=== PATIENT | female | born 1990 | race Caucasian/White ===

== ENCOUNTER 2017-12-15 08:35 | Outpatient (CLI) | payer OTHER, MEDICAID | END 2017-12-15 11:00 | disposition home or self-care (01) | LOC: OBT 08:35 → L-D 08:36 → OBT 11:00 | DX: O21.0 Mild hyperemesis gravidarum (principal); O36.8130 Decreased fetal movements, third trimester, not applicable or unspecified; Z3A.34 34 weeks gestation of pregnancy | CPT/HCPCS: 76818 ==

== ENCOUNTER 2017-12-15 11:11 | Emergency (ER) | payer OTHER ==
[2017-12-15] MEDS: METOCLOPRAMIDE 10 MG INJ IV (15:02)
[2017-12-15 15:19] LABS: ADD MAN DIFF? NO
[2017-12-15 15:21] LABS: WHITE BLOOD COUNT 5.3 10^3/ul (4.8-10.8)
[2017-12-15 15:21] LABS: BASOPHILS % 0.2 % (0.0-2.0); HEMATOCRIT 28.4 % (37.0-47.0); HEMOGLOBIN 9.3 g/dl (12.0-16.0); LYMPHOCYTES # 0.8 10^3/ul (0.8-2.9); LYMPHOCYTES % 14.9 % (15.0-51.0); MEAN CORPUSCULAR HEMOGLOBIN 27.8 pg (29.0-33.0); MEAN CORPUSCULAR HGB CONC 32.7 g/dl (32.0-37.0); MEAN CORPUSCULAR VOLUME 84.8 fl (82.0-101.0); MEAN PLATELET VOLUME 10.4 fl (7.4-10.4); MONOCYTE # 0.5 10^3/ul (0.3-0.9); MONOCYTES % 9.1 % (0.0-11.0); NEUTROPHILS % 75.6 % (39.0-77.0); PLATELET COUNT 271 10^3/UL (140-415); RED BLOOD COUNT 3.35 10^6/ul (4.20-5.40); RED CELL DISTRIBUTION WIDTH 15.4 % (11.5-14.5)
[2017-12-15 15:30] LABS: ADD UMIC YES; UR ASCORBIC ACID NEGATIVE (NEGATIVE); UR BACTERIA FEW /HPF (NONE SEEN); UR BILIRUBIN (Dip) NEGATIVE (NEGATIVE); UR BLOOD (Dip) NEGATIVE (NEGATIVE); UR CLARITY SLIGHTLY CLOUDY (CLEAR); UR COLOR YELLOW (YELLOW); UR GLUCOSE (Dip) NEGATIVE (NEGATIVE); UR KETONES (Dip) 2+ mg/dL (NEGATIVE); UR LEUKOCYTE ESTERASE (Dip) NEGATIVE Leu/ul (NEGATIVE); UR MUCUS MODERATE /HPF (NONE SEEN); UR NITRITE (Dip) NEGATIVE (NEGATIVE); UR RBC 2 /HPF (0-5); UR SPECIFIC GRAVITY (Dip) 1.025 (1.003-1.030); UR SQUAMOUS EPITHELIAL CELL FEW /HPF (FEW); UR TOTAL PROTEIN (Dip) 2+ mg/dl (NEGATIVE); UR UROBILINOGEN (Dip) 1+ mg/dL (NEGATIVE); UR WBC 2 /HPF (0-5)
[2017-12-15 15:49] LABS: ALANINE AMINOTRANSFERASE 27 IU/L (13-69); ALBUMIN 3.6 g/dl (3.3-4.9); ALBUMIN/GLOBULIN RATIO 0.94; ALKALINE PHOSPHATASE 543 IU/L (42-121); ANION GAP 16 (8-16); ASPARTATE AMINO TRANSFERASE 26 IU/L (15-46); BILIRUBIN,INDIRECT 0.1 mg/dl (0-1.1); BILIRUBIN,TOTAL 0.1 mg/dl (0.2-1.3); BLOOD UREA NITROGEN 4 mg/dl (7-20); CALCIUM 9.1 mg/dl (8.4-10.2); CARBON DIOXIDE 22 mmol/L (21-31); CHLORIDE 102 mmol/L (97-110); CREATININE 0.53 mg/dl (0.44-1.00); GLUCOSE 129 mg/dl (70-220); LIPASE 30 U/L (23-300); POTASSIUM 3.3 mmol/L (3.5-5.1); SODIUM 137 mmol/L (135-144); TOTAL PROTEIN 7.4 g/dl (6.1-8.1)
== END 2017-12-15 15:36 | disposition home or self-care (01) ==
LOC: FTE 11:11
DX: R11.2 Nausea with vomiting, unspecified (principal)
CPT/HCPCS: 36415; 80053; 81001; 83690; 85025; 96374; 99284-25

== ENCOUNTER 2018-01-23 04:23 | Inpatient (IN) | payer OTHER ==
[2018-01-23] MEDS ORDERED: MISOPROSTOL 200 MCG TAB PR ×2 (05:00→11:30)
[2018-01-23] MEDS ORDERED: IBUPROFEN 600 MG TAB PO (05:00)
[2018-01-23] MEDS ORDERED: METHYLERGONOVINE 0.2 MG INJ IM ×2 (05:00→11:30)
[2018-01-23] MEDS ORDERED: LIDOCAINE 1% (MPF) 30 ML INJ INJ (05:00)
[2018-01-23] MEDS ORDERED: OXYTOCIN 30 UNITS/LR 500 ML IV ×2 (05:00→11:30)
[2018-01-23] MEDS ORDERED: CARBOPROST 250 MCG INJ IM ×2 (05:00→11:30)
[2018-01-23 05:36] LABS: ADD MAN DIFF? NO
[2018-01-23] MEDS: BUTORPHANOL 2 MG INJ IV ×2 (05:38→07:17)
[2018-01-23 05:43] LABS: WHITE BLOOD COUNT 5.1 10^3/ul (4.8-10.8)
[2018-01-23 05:43] LABS: BASOPHILS % 0.4 % (0.0-2.0); EOSINOPHILS % 0.8 % (0.0-7.0); HEMATOCRIT 27.7 % (37.0-47.0); HEMOGLOBIN 8.9 g/dl (12.0-16.0); LYMPHOCYTES # 1.4 10^3/ul (0.8-2.9); LYMPHOCYTES % 26.8 % (15.0-51.0); MEAN CORPUSCULAR HEMOGLOBIN 25.9 pg (29.0-33.0); MEAN CORPUSCULAR HGB CONC 32.1 g/dl (32.0-37.0); MEAN CORPUSCULAR VOLUME 80.8 fl (82.0-101.0); MEAN PLATELET VOLUME 11.6 fl (7.4-10.4); MONOCYTE # 0.5 10^3/ul (0.3-0.9); MONOCYTES % 9.5 % (0.0-11.0); NEUTROPHIL # 3.2 10^3/ul (1.6-7.5); NEUTROPHILS % 62.3 % (39.0-77.0); PLATELET COUNT 283 10^3/UL (140-415); RED BLOOD COUNT 3.43 10^6/ul (4.20-5.40); RED CELL DISTRIBUTION WIDTH 16.7 % (11.5-14.5)
[2018-01-23 05:53] LABS: INR 0.93; PARTIAL THROMBOPLASTIN TIME 25.6 Sec (25.0-35.0); PROTIME 12.5 Sec (11.9-14.9)
[2018-01-23] MEDS: LACTATED RINGER'S 1,000 ML IV ×2 (05:53→07:12)
[2018-01-23] MEDS: AMPICILLIN 2 GM/NS (PMX) 100 ML IV (05:53)
[2018-01-23 06:04] LABS: URIC ACID 5.7 mg/dl (3.1-7.9)
[2018-01-23 06:10] LABS: ALANINE AMINOTRANSFERASE 28 IU/L (13-69); ALBUMIN 3.2 g/dl (3.3-4.9); ALBUMIN/GLOBULIN RATIO 0.96; ALKALINE PHOSPHATASE 1062 IU/L (42-121); ANION GAP 15 (8-16); ASPARTATE AMINO TRANSFERASE 26 IU/L (15-46); BILIRUBIN,INDIRECT 0.1 mg/dl (0-1.1); BILIRUBIN,TOTAL 0.1 mg/dl (0.2-1.3); BLOOD UREA NITROGEN 7 mg/dl (7-20); CALCIUM 9.4 mg/dl (8.4-10.2); CARBON DIOXIDE 21 mmol/L (21-31); CHLORIDE 108 mmol/L (97-110); CREATININE 0.61 mg/dl (0.44-1.00); GLUCOSE 98 mg/dl (70-220); POTASSIUM 3.3 mmol/L (3.5-5.1); SODIUM 141 mmol/L (135-144); TOTAL PROTEIN 6.5 g/dl (6.1-8.1)
[2018-01-23] MEDS ORDERED: FENTAnyl 2MCG/ML-ROPIV 0.2% 100 ML (06:19)
[2018-01-23] MEDS ORDERED: EPHEDrine SULFATE 50 MG/5 ML SYG IV (06:30)
[2018-01-23] MEDS ORDERED: DIPHENHYDRAMINE 50 MG INJ IV (06:30)
[2018-01-23] MEDS ORDERED: NALOXONE (0.4 MG/ML) INJ IV (06:30)
[2018-01-23] MEDS ORDERED: ONDANSETRON 4 MG INJ IV (06:30)
[2018-01-23 06:36] LABS: HEPATITIS B SURFACE ANTIGEN NEGATIVE (NEGATIVE)
[2018-01-23] MEDS: FENTAnyl 2MCG/ML-ROPIV 0.2% 100 ML BAG EPI (07:18)
[2018-01-23 07:46] LABS: ADD UMIC NO; UR ASCORBIC ACID NEGATIVE (NEGATIVE); UR BILIRUBIN (Dip) NEGATIVE (NEGATIVE); UR BLOOD (Dip) NEGATIVE (NEGATIVE); UR CLARITY CLEAR (CLEAR); UR COLOR STRAW (YELLOW); UR GLUCOSE (Dip) NEGATIVE (NEGATIVE); UR KETONES (Dip) 1+ mg/dL (NEGATIVE); UR LEUKOCYTE ESTERASE (Dip) NEGATIVE Leu/ul (NEGATIVE); UR NITRITE (Dip) NEGATIVE (NEGATIVE); UR SPECIFIC GRAVITY (Dip) 1.012 (1.003-1.030); UR TOTAL PROTEIN (Dip) NEGATIVE (NEGATIVE); UR UROBILINOGEN (Dip) NEGATIVE (NEGATIVE)
[2018-01-23] MEDS: AMPICILLIN 1 GM/NS (PMX) 50 ML IV (08:49)
[2018-01-23] MEDS: OXYTOCIN 30 UNITS/LR 500 ML IV ×3 (09:06→13:51)
[2018-01-23] MEDS ORDERED: ACETAMINOPHEN 325 MG TAB PO (11:30)
[2018-01-23] MEDS ORDERED: MAGNESIUM HYDROXIDE 30ML CUP PO (11:30)
[2018-01-23] MEDS ORDERED: ZOLPIDEM 5 MG TAB PO (11:30)
[2018-01-23] MEDS ORDERED: DIPHENHYDRAMINE 25 MG CAP PO (11:30)
[2018-01-23] MEDS: IBUPROFEN 800 MG TAB PO ×3 (12:29→23:48)
[2018-01-23] MEDS: BENZOCAINE 20% 56 ML SPRAY TOP (17:07)
[2018-01-23] MEDS: LANOLIN 7 GM TUBE TOP (17:08)
[2018-01-23] MEDS: WITCH HAZEL/GLYCERIN PAD PR (17:08)
[2018-01-23] MEDS: LACTATED RINGER'S 1,000 ML IV* (18:16)
[2018-01-23] MEDS: HYDROCODONE/APAP (5/325) TAB PO (21:30)
[2018-01-23 22:20] LABS: RAPID PLASMA REAGIN NONREACTIVE (NR)
[2018-01-24] MEDS: IBUPROFEN 800 MG TAB PO ×3 (05:34→17:35)
[2018-01-24] MEDS: SENNA/DOCUSATE NA (8.6MG/50MG) TAB PO ×2 (09:17→21:01)
[2018-01-24 11:23] LABS: ADD MAN DIFF? NO
[2018-01-24 11:28] LABS: BASOPHILS % 0.5 % (0.0-2.0); EOSINOPHILS # 0.1 10^3/ul (0.0-0.5); HEMATOCRIT 23.9 % (37.0-47.0); HEMOGLOBIN 7.4 g/dl (12.0-16.0); LYMPHOCYTES # 1.5 10^3/ul (0.8-2.9); LYMPHOCYTES % 25.7 % (15.0-51.0); MEAN CORPUSCULAR HEMOGLOBIN 25.6 pg (29.0-33.0); MEAN CORPUSCULAR VOLUME 82.7 fl (82.0-101.0); MEAN PLATELET VOLUME 11.2 fl (7.4-10.4); MONOCYTE # 0.5 10^3/ul (0.3-0.9); MONOCYTES % 8.8 % (0.0-11.0); NEUTROPHIL # 3.8 10^3/ul (1.6-7.5); NEUTROPHILS % 63.8 % (39.0-77.0); PLATELET COUNT 242 10^3/UL (140-415); RED BLOOD COUNT 2.89 10^6/ul (4.20-5.40); RED CELL DISTRIBUTION WIDTH 16.7 % (11.5-14.5)
[2018-01-24 11:28] LABS: WHITE BLOOD COUNT 5.9 10^3/ul (4.8-10.8)
[2018-01-25] MEDS: IBUPROFEN 800 MG TAB PO ×3 (00:11→11:32)
[2018-01-25] MEDS: VARICELLA VACCINE LIVE/PF 1,350 UNIT/0.5 ML ML SC* (09:07)
[2018-01-25] MEDS: MEASLES,MUMPS,RUBELLA VACCINE INJ SC* (09:07)
[2018-01-25] MEDS: DIPHTH/TET/ACEL PERTUSS (ADULT) 0.5 ML VIAL IM* (09:07)
== END 2018-01-25 15:16 | disposition home or self-care (01) | DRG 775 ==
LOC: OBT 04:23 → L-D 04:23 → OBT 04:30 → L-D 04:30 → PP1 14:00
PROVIDERS: Obstetrics & Gynecology
PROC: 10E0XZZ Delivery of Products of Conception, External Approach (ICD-10-PCS; principal; 2018-01-23)
PROC: 3E033VJ Introduction of Other Hormone into Peripheral Vein, Percutaneous Approach (ICD-10-PCS; 2018-01-23)
DX: O99.02 Anemia complicating childbirth (principal); Z3A.38 38 weeks gestation of pregnancy; Z37.0 Single live birth
CPT/HCPCS: 62319; 80053; 81003; 84560; 85025; 85610; 85730; 86592; 86850; 86900; 86901; 87340

== ENCOUNTER 2018-02-06 18:16 | Emergency (ER) | payer OTHER | END 2018-02-06 19:10 | disposition home or self-care (01) | LOC: FTE 18:16 → E/R 19:10 | DX: Z01.30 Encounter for examination of blood pressure without abnormal findings (principal) | CPT/HCPCS: 99282; Z7502 ==